=== PATIENT | male | born 1985 | race Caucasian/White ===

== ENCOUNTER 2020-11-23 07:32 | Emergency (ER) | payer OTHER ==
[~2020-11-23] VITALS: Ht 188 cm; Wt 77.1 kg
[~2020-11-23 07:32] MED LIST: ALBU90OI INH; ALBU90OI6 INH; AMOX875 PO; ATRIPLA; BENZ100A PO; BUSP10 PO; BUSP5 PO; CITA20 PO; CODACE30 PO; EFAVIRENZ; EMTRICITABINE; ERGO400 PO; FLUT110OIA IH; GABA300 PO; HYDACE5 PO; HYDCOR2.5C PR; IBUP800 PO; LORA1 PO; MEDICAL MARIJUANA; POLY17UD PO; RXHYDACE PO; SULTRIDS PO; SULTRISS PO; TENOFOVIR DISOPROXIL FUMARATE; TRAM50 PO; TRAZ100 PO; TRAZ50 PO
== END 2020-11-23 08:43 | disposition home or self-care (01) ==
LOC: ER 07:32
DX: S83.8X1A Sprain of other specified parts of right knee, initial encounter (principal); F17.200 Nicotine dependence, unspecified, uncomplicated; Z91.09 Other allergy status, other than to drugs and biological substances; Z79.899 Other long term (current) drug therapy; Z21 Asymptomatic human immunodeficiency virus [HIV] infection status; X50.1XXA Overexertion from prolonged static or awkward postures, initial encounter
CPT/HCPCS: 29505; 99283-25

== ENCOUNTER 2021-01-19 15:52 | Emergency (ER) | payer OTHER ==
[~2021-01-19] VITALS: Ht 188 cm; Wt 77.1 kg
[2021-01-19] MEDS ORDERED: BIKTARVY 50-201 EAC1 PO (16:41)
== END 2021-01-19 17:54 | disposition home or self-care (01) ==
LOC: ER 15:52
DX: S61.210A Laceration without foreign body of right index finger without damage to nail, initial encounter (principal); F17.200 Nicotine dependence, unspecified, uncomplicated; Z91.09 Other allergy status, other than to drugs and biological substances; Z21 Asymptomatic human immunodeficiency virus [HIV] infection status; Z79.899 Other long term (current) drug therapy; W31.89XA Contact with other specified machinery, initial encounter; Y92.89 Other specified places as the place of occurrence of the external cause; Y99.0 Civilian activity done for income or pay
CPT/HCPCS: 90471; 90714; 99282-25

== ENCOUNTER 2021-03-25 06:00 | Emergency (ER) | payer OTHER ==
[~2021-03-25] VITALS: Ht 188 cm; Wt 74.8 kg
[~2021-03-25 06:00] MED LIST changes: +BIKTARVY 50-201 EAC1 PO
[2021-03-25] MEDS ORDERED: LIDO700A20 TOP (07:09)
== END 2021-03-25 07:19 | disposition home or self-care (01) ==
LOC: ER 06:00
DX: S46.912A Strain of unspecified muscle, fascia and tendon at shoulder and upper arm level, left arm, initial encounter (principal); F17.210 Nicotine dependence, cigarettes, uncomplicated; X50.1XXA Overexertion from prolonged static or awkward postures, initial encounter
CPT/HCPCS: 73030; 99283-25

== ENCOUNTER 2021-08-13 17:10 | Emergency (ER) | payer OTHER ==
[~2021-08-13] VITALS: Ht 188 cm; Wt 74.8 kg
[~2021-08-13 17:10] MED LIST changes: +LIDO700A20 TOP
[2021-08-13] MEDS ORDERED: Norco 5-325 Ta1 EACH PO (17:56)
[2021-08-13] MEDS ORDERED: ONDA4ODT MM (17:56)
== END 2021-08-13 18:03 | disposition home or self-care (01) ==
LOC: ER 17:10
DX: S83.8X1A Sprain of other specified parts of right knee, initial encounter (principal); F17.210 Nicotine dependence, cigarettes, uncomplicated; Z91.048 Other nonmedicinal substance allergy status; X58.XXXA Exposure to other specified factors, initial encounter
CPT/HCPCS: 99283; A9270

== ENCOUNTER 2021-11-22 10:57 | Emergency (ER) | payer OTHER ==
[~2021-11-22] VITALS: Ht 188 cm; Wt 77.1 kg
[~2021-11-22 10:57] MED LIST changes: +Norco 5-325 Ta1 EACH PO; +ONDA4ODT MM
[2021-11-22 11:42] LABS: BASOPHILS ABSOLUTE AUTO 0.03 K/mm3 (0.00-0.23); BASOPHILS PERCENT AUTO 1 % (0-2); EOSINOPHILS ABSOLUTE AUTO 0.07 K/mm3 (0.00-0.68); EOSINOPHILS PERCENT AUTO 1 % (0-6); Hematocrit 42.7 % (37.0-53.0); Hemoglobin 14.4 g/dL (13.5-17.5); IMMATURE GRAN ABSOLUTE AUTO 0.01 K/mm3 (0.00-0.10); IMMATURE GRAN PERCENT AUTO 0 % (0-1); LYMPHOCYTES ABSOLUTE AUTO 1.76 K/mm3 (0.84-5.20); LYMPHOCYTES PERCENT AUTO 29 % (21-46); MONOCYTES ABSOLUTE AUTO 0.37 K/mm3 (0.16-1.47); MONOCYTES PERCENT AUTO 6 % (4-13); Mean Corpuscular HGB 32.1 pg (26.0-34.0); Mean Corpuscular HGB Conc 33.7 g/dL (31.5-36.5); Mean Corpuscular Volume 95 fL (80-100); NEUTROPHILS ABSOLUTE AUTO 3.93 K/mm3 (1.96-9.15); NEUTROPHILS PERCENT AUTO 64 % (41-73); Platelet Count 223 K/mm3 (150-400); RDW Coefficient Variation 12.3 % (11.7-14.2); RDW Standard Deviation 43.4 fL (35.1-46.3); Red Blood Cell Count 4.48 M/mm3 (4.30-5.90); White Blood Cell Count 6.17 K/mm3 (4.00-11.30)
[2021-11-22 12:01] LABS: Alanine Aminotransfer (ALT/SGP 26 U/L (12-78); Albumin, Blood 3.7 g/dL (3.4-5.0); Albumin/Globulin Ratio 1.2 (0.8-1.8); Alk Phos 69 U/L (50-136); Anion Gap 2 mmol/L (6-16); Aspartate Aminotrans (AST/SGOT 11 U/L (12-37); Bilirubin, Total 0.3 mg/dL (0.1-1.0); Blood Urea Nitrogen 10 mg/dL (8-24); Bun/Creatinine Ratio 11.6 (12.0-20.0); CO2, Blood 30 mmol/L (21-32); Chloride, Blood 110 mmol/L (98-108); Creatinine, Blood 0.87 mg/dL (0.60-1.20); Globulin, Blood 3.2 g/dL (2.2-4.0); Glomerular Filtration Rate >60 (60-); Glucose, Blood 103 mg/dL (70-99); Potassium, Blood 4.4 mmol/L (3.5-5.5); Sodium, Blood 142 mmol/L (136-145); Total Protein, Blood 6.9 g/dL (6.4-8.2)
[2021-11-23 14:09] LABS: % CD 4 POS. LYMPH. 45.1 % (30.8-58.5); ABSOLUTE CD 4 HELPER 722 /uL (359-1519); BASO (ABSOLUTE) 0.1 x10E3/uL (0.0-0.2); BASOS 1 % (Not Estab.); EOS 1 % (Not Estab.); EOS (ABSOLUTE) 0.1 x10E3/uL (0.0-0.4); HEMATOCRIT 41.5 % (37.5-51.0); HEMOGLOBIN 14.2 g/dL (13.0-17.7); IMMATURE GRANULOCYTES 0 % (Not Estab.); LYMPHS 28 % (Not Estab.); LYMPHS (ABSOLUTE) 1.6 x10E3/uL (0.7-3.1); MCHC 34.2 g/dL (31.5-35.7); MCV 94 fL (79-97); MONOCYTES 6 % (Not Estab.); MONOCYTES(ABSOLUTE) 0.4 x10E3/uL (0.1-0.9); NEUTROPHILS 64 % (Not Estab.); NEUTROPHILS (ABSOLUTE) 3.6 x10E3/uL (1.4-7.0); PLATELETS 220 x10E3/uL (150-450); RBC 4.44 x10E6/uL (4.14-5.80); RDW 12.4 % (11.6-15.4); WBC 5.7 x10E3/uL (3.4-10.8)
== END 2021-11-22 12:45 | disposition home or self-care (01) ==
LOC: ER 10:57
PROVIDERS: Emergency Medicine
DX: R00.2 Palpitations (principal); Z91.048 Other nonmedicinal substance allergy status; Z21 Asymptomatic human immunodeficiency virus [HIV] infection status; Z79.899 Other long term (current) drug therapy; F17.210 Nicotine dependence, cigarettes, uncomplicated
CPT/HCPCS: 71045; 80053; 84484; 85025; 86361; 93005; 93010; 99285-25

== ENCOUNTER 2022-04-08 10:49 | Emergency (ER) | payer OTHER ==
[~2022-04-08] VITALS: Ht 185.4 cm; Wt 83.9 kg
== END 2022-04-08 11:34 | disposition home or self-care (01) ==
LOC: ER 10:49
DX: U07.1 COVID-19 (principal); F17.210 Nicotine dependence, cigarettes, uncomplicated; Z91.048 Other nonmedicinal substance allergy status; Z21 Asymptomatic human immunodeficiency virus [HIV] infection status
CPT/HCPCS: 99282

== ENCOUNTER 2022-08-20 10:07 | Emergency (ER) | payer OTHER ==
[~2022-08-20] VITALS: Ht 188 cm; Wt 81.7 kg
[2022-08-20] MEDS ORDERED: CABENUVA 400 MG-4 ML IM (11:47)
[2022-08-20 12:21] LABS: BASOPHILS ABSOLUTE AUTO 0.03 K/mm3 (0.00-0.23); BASOPHILS PERCENT AUTO 1 % (0-2); EOSINOPHILS ABSOLUTE AUTO 0.01 K/mm3 (0.00-0.68); EOSINOPHILS PERCENT AUTO 0 % (0-6); Hematocrit 44.6 % (37.0-53.0); Hemoglobin 15.1 g/dL (13.5-17.5); IMMATURE GRAN ABSOLUTE AUTO 0.02 K/mm3 (0.00-0.10); IMMATURE GRAN PERCENT AUTO 0 % (0-1); LYMPHOCYTES ABSOLUTE AUTO 1.08 K/mm3 (0.84-5.20); LYMPHOCYTES PERCENT AUTO 17 % (21-46); MONOCYTES ABSOLUTE AUTO 0.45 K/mm3 (0.16-1.47); MONOCYTES PERCENT AUTO 7 % (4-13); Mean Corpuscular HGB 30.8 pg (26.0-34.0); Mean Corpuscular HGB Conc 33.9 g/dL (31.5-36.5); Mean Corpuscular Volume 91 fL (80-100); Mean Platelet Volume 10.3 fL (9.1-12.4); NEUTROPHILS PERCENT AUTO 76 % (41-73); Platelet Count 229 K/mm3 (150-400); RDW Coefficient Variation 11.9 % (11.7-14.2); RDW Standard Deviation 39.8 fL (35.1-46.3); Red Blood Cell Count 4.91 M/mm3 (4.30-5.90); White Blood Cell Count 6.49 K/mm3 (4.00-11.30)
[2022-08-20 12:26] LABS: Albumin, Blood 3.9 g/dL (3.4-5.0); Bilirubin, Total 0.4 mg/dL (0.1-1.0); Bun/Creatinine Ratio 9.2 (12.0-20.0); Calcium, Blood 9.3 mg/dL (8.5-10.1); Creatinine, Blood 0.87 mg/dL (0.60-1.20); Globulin, Blood 3.9 g/dL (2.2-4.0); Potassium, Blood 4.2 mmol/L (3.5-5.5); Total Protein, Blood 7.8 g/dL (6.4-8.2)
== END 2022-08-20 13:00 | disposition left against medical advice (07) ==
LOC: ER 10:07
PROVIDERS: Physician Assistant
DX: M25.552 Pain in left hip (principal); M25.551 Pain in right hip; Z53.21 Procedure and treatment not carried out due to patient leaving prior to being seen by health care provider
CPT/HCPCS: 36415; 80053; 85025

== ENCOUNTER 2023-02-10 10:30 | Emergency (ER) | payer OTHER ==
[~2023-02-10] VITALS: Ht 188 cm; Wt 83.9 kg
[~2023-02-10 10:30] MED LIST changes: +CABENUVA 400 MG-4 ML IM
[2023-02-10 10:37] VITALS: BP 122/83
== END 2023-02-10 12:26 | disposition left against medical advice (07) ==
LOC: ER 10:30
DX: H57.12 Ocular pain, left eye (principal); R22.0 Localized swelling, mass and lump, head
CPT/HCPCS: A9270

== ENCOUNTER 2024-09-14 07:52 | Emergency (ER) | payer OTHER ==
[~2024-09-14] VITALS: Ht 188 cm; Wt 79.4 kg
[2024-09-14 09:32] LABS: CORONAVIRUS COVID-19 AG Negative (NEGATIVE); INFLUENZA A AG Negative (NEGATIVE); INFLUENZA B AG Negative (NEGATIVE)
[2024-09-14 09:54] VITALS: BP 137/101
== END 2024-09-14 10:45 | disposition home or self-care (01) ==
LOC: ER 07:52
PROVIDERS: Physician Assistant
DX: J06.9 Acute upper respiratory infection, unspecified (principal); F17.210 Nicotine dependence, cigarettes, uncomplicated; Z79.899 Other long term (current) drug therapy; Z91.048 Other nonmedicinal substance allergy status
CPT/HCPCS: 87428-QW; 99283